=== PATIENT | female | born 1950 | race Caucasian/White ===

== ENCOUNTER → 2017-08-02 18:47 | Outpatient (CLI) | payer MEDICARE, BC, SELFPAY ==
[2017-08-02 18:56] LABS: Color, Urine Yellow (Yellow); Glucose, Dipstick Normal (Normal); Ketone-Dipstick Negative (Negative); Leukocyte Esterase-Dipstick 500 /ul (Negative); Nitrite-Dipstick Negative (Negative); Occult Blood-Urine 25 /ul (Negative); Protein-Dipstick 15 mg/dl (Negative); Specific Gravity, Urine 1.015 (1.002-1.030); Urine Bilirubin Dipstick Negative (Negative); Urine Clarity Sl. Cloudy (Clear); Urine Urobilinogen Normal (Normal)
[2017-08-03 08:38] LABS: Mucous, Urine 0 SEEN /hpf (<or=2+)
[2017-08-03 09:15] LABS: Bacteria 2+ /hpf (None Seen); Red Blood Cells-Urine 5-10 SEEN /hpf (0-5); Squamous Epithelial Cells - UA 25-50 SEEN /hpf (5-10); White Blood Cells 10-25 SEEN /hpf (0-5)
[2017-08-03 09:16] LABS: Triple Phosphate Crystals Ur 4+ /hpf (<or=1+)
== END ==
PROVIDERS: Family Provider Family Medicine; PCP Family Medicine; Visit Provider Nurse Practitioner Adult Health
DX: R82.99 Other abnormal findings in urine (principal)
CPT/HCPCS: 81002; 87077; 87086; 87088; 87186

== ENCOUNTER 2017-08-08 07:46 | Day surgery (SDC) | payer MEDICARE, BC, SELFPAY ==
[2017-08-05 09:58] VITALS: BP 121/73; PULSE 57; RESP 16; TEMP 36.7; O2SAT 98; BMI 31.2
--- NOTE | 2017-08-05 10:52 | EKG12_ITS ---
Test Reason : PRE-OP Blood Pressure : / mmHG Vent. Rate : 055 BPM Atrial Rate : 055 BPM P-R Int : 202 ms QRS Dur : 084 ms QT Int : 438 ms P-R-T Axes : 050 030 037 degrees QTc Int : 419 ms Sinus bradycardia Otherwise normal ECG Confirmed by NEIL OGLDBERG, WALI ([id number]), marketing editor DIANN LOPEZ ([id number] on 08/08/2017 2:29:41 PM Referred By: Sharan Fitzpatrick Confirmed By:WALI TREJO MD
[2017-08-05 11:24] LABS: Hematocrit 43.8 % (37-47); Hemoglobin 14.5 g/dl (12.0-15.0); Mean Corp Hgb Conc 33.1 g/gl (32-36); Mean Corpuscular Hgb 32.1 pg (27.0-32.0); Mean Corpuscular Volume 96.9 fL (81-99); Mean Platelet Vol. 11.5 fl (6.2-12.0); Platelet Count 265 K/mm3 (150-450); RBC Distribution Width CV 12.1 % (11.6-14.6); RBC Distribution Width SD 42.1 fl (35.1-43.9); Red Blood Count 4.52 M/mm3 (4.2-5.4); White Blood Count 4.9 K/mm3 (4.4-11.0)
[2017-08-05 11:26] LABS: Scan Indicated on CBC? Y/N NO
[2017-08-05 11:28] LABS: Prothrombin Time (Protime)PT. 13.6 SECONDS (11.7-14.9)
[2017-08-05 11:59] LABS: AST(SGOT) 21 U/L (15-37); Alanine Aminotransfer ALT/SGPT 29 U/L (13-56); Albumin, Serum 3.6 g/dL (3.2-5.0); Alkaline Phosphatase 72 U/L (45-117); Anion Gap 7 (5-15); BUN 19 mg/dL (7-18); BUN/Creat Ratio 25.4 RATIO (10-20); Chloride 106 mmol/L (98-107); Creatinine, Serum 0.75 mg/dL (0.55-1.02); EST Glomerular Filtration Rate 82 mL/min (>60); Est Glom Filt Rate - Afr Amer 99 mL/min (>60); Estimated Creatinine Clearance 49.12 ml/min; Globulin 3.6 g/dL (2.2-4.2); Glucose 89 mg/dL (74-106); Potassium 4.1 mmol/L (3.5-5.1); Protein, Total 7.2 g/dL (6.4-8.2); Sodium Level 143 mmol/L (136-145); Thyroid Stim Hormone (TSH) 0.31 uIU/mL (0.358-3.74)
--- NOTE | 2017-08-07 21:16 | HP.PCM_ITS ---
History and Physical Date of Admission: 08/08/17 Surgical History and Physical Pearl Ochoa, a 67 year old female 2 0 1 0 2, presents for Vaginal Hysterectomy and AP Repair and TVT per Dr. Singh on August 08, 2017 at 10:00. -- Prolapse and Bulging Symptoms; Stress Incontinence -- Pearl presents here today as referral from Dr. Singh for combined surgery for prolapsed bladder and cystocele. 67 y.o. G 3 P 2 post-menopausal non- smoker reporting that she started several weeks ago with pressure between her legs that was interrupting her urine release/flow. Up to date with exam, Mammogram etc. with PCP. Medication list up-dated. Cystocele found on exam for bladder surgery. Pearl claims it started gradually and has been present at least 6 months. It occurs all the time. It is located in the vagina. Pearl characterizes the quality pressure. Severity is moderate and not improving and very concerned; associated signs and symptoms are stress incontinence. MEDICATIONS HISTORY: Current medications prescribed by our practice are: 1. Estrace 0.01% (0.1 mg/gram) vaginal cream, one half gram per vagina twice weekly Patient is also takin. atenolol 50 mg tablet, one half tab daily 2. dicyclomine 10 mg capsule, As Directed prn 3. rosuvastatin 5 mg tablet, One pill by mouth every other day 4. Synthroid 175 mcg tablet, One pill by mouth once a day 5. valsartan 40 mg tablet, One pill by mouth every other day ALLERGIES: Tetanus Toxoid, Anaphylaxis, Compazine, Bruxism (grinding of the teeth and/or clenching of the jaw), Morphine and Hallucinations Infections - Chicken pox Illnesses - Polio, Hypothyroidism, IBS,Osteoarthritis Accidents - None Hospitalizations - see surgery Review of Systems: GENERAL - Denies fever, or chills SKIN - Denies skin changes EYES - Denies visual changes EARS - Denies difficulty hearing NOSE - Denies nasal congestion or bleeding MOUTH - Denies sore throat or difficulty swallowing NECK - Denies pain or swelling RESPIRATORY - Denies shortness of breath or wheezing CARDIOVASCULAR - Denies palpitations or chest pain GASTROINTESTINAL - Denies nausea, vomiting, diarrhea, constipation GENITOURINARY - incontinence (stress) MUSCULOSKELETAL - Denies joint or muscle pain NEUROLOGICAL - Denies localized numbness or weakness PSYCHIATRIC - Denies depression or anxiety ENDOCRINE - Denies heat or cold intolerance, weight loss or gain HEMATO-IMMUNOLOGIC - Denies excessive bleeding with cuts SOCIAL HISTORY: Alcohol Use - None Smoking - Never Diet - Whole Thirty Diet Lifestyle - moderate stress lifestyle and Exercise - active Seat Belt Use - always Employer - Retired Illicit Drug Use - None Sexual Activity - Spouse-Sig Other Name - Rajat Ochoa Spouse-Sig Other Occupation - Retired Control - postmenopausal FAMILY HISTORY: NC MENSTRUAL HISTORY: LMP Known?- Postmenopausal PAST PREGNANCIES: Total Pregnancies - 3; Full Term Pregnancies - 2; Premature - 0; Abortions, Induced - 0; Abortions, Spontaneous - 1; Ectopics - 0; Multiple Births - 0; Living Children - 2 SURGICAL HISTORY: 1. Appendectomy, 1979 2. D and C, 1987 3. 1993 (L) Breast Lumpectomy 4. cholecystectomy, 1997 5. 2005 (L) Leg surgery 6. 2009 Meniscus Repair 7. 2016 cataracts PHYSICAL EXAM BP- 118/78 Sitting, Right arm, regular cuff Weight- 186.84834 lbs Height- 65 inch BMI:31.02 CONSTITUTIONAL - NAD, well nourished, and well developed SKIN - No rash, lesions, or ulcers HEENT - Normocephalic, PERRLA, EOMI NECK - No nodes, no nuchal rigidity and thyroid normal size and texture LYMPH NODES - Palpation of lymph nodes in neck and groins within normal limits LUNGS - CTA x2 without wheezes, crackles or rales CARDIAC - Regular rate and rhythm without rubs, murmurs, or gallops ABDOMEN - Without hepatosplenomegaly, distention, masses, rebound, or guarding; normal bowel sounds; no hernias EXTREMITIES - No edema or calf tenderness NEUROLOGICAL - Cranial nerves II-XII grossly intact PSYCHIATRIC - A and O to time, place, person, mood and affect External Genital Vagina - non-tender without lesions Urethra/Urethral Meatus - non-tender Bladder - non-tender Vagina - loss of rugae, large cystocele and moderate rectocele Cervix - without cervical motion tenderness and has normal size and features without evident lesions and protrudes to within 3 cm of introitus with bearing down Uterus - 5-6 cm in size, mobile and nontender Adnexa - clear without masses or tenderness ASSESSMENT/PLAN: 1. Cystocele Midline, Uterovaginal Prolapse and Incomplete Discussed options for treatment and patient declines trying pessary. Desires to proceed with repair with TVT. Plan Vag Hyst and AP Repair (TVT per Dr. Singh). Discussed RBAs and all questions answered. Start intravaginal estradiol treatment.
[2017-08-08] VITALS (13 sets, daily range): BP systolic 99–128; BP diastolic 52–65; PULSE 53–89; RESP 16–18; TEMP 36.2–37.4; O2SAT 97–100; BMI 31.2
--- NOTE | 2017-08-08 09:17 | OP.PCM_ITS ---
Operative Report Date of Procedure: 08/08/17 Surgeons: Sharan Fitzpatrick MD, FACOG--for Vaginal Hysterectomy and AP Repair; Jos Singh MD-- for Cystoscopy and TVT Transportation Economics Teacher: AZUL Tran Anesthesia: Tristian Brown CRNA Type of anesthesia: General endotracheal Procedure: Vaginal hysterectomy and AP repair per myself; TVT and Cystoscopy per Dr. Jos Singh dictated separately Findings: 6 cm uterus with normal-appearing fallopian tubes. Large cystocele which protruded 2 cm outside the introitus. Cervix which protruded to within 1 cm of the introitus. Moderate rectocele after anterior repair portion of the procedure was completed. Indications: This is a 67-year-old who is been having problems with vaginal prolapse and pressure as well as stress urinary incontinence. Conservative measures have not been helpful. Given this the patient desires that we proceed the above procedure. She has been counseled regarding the risk and indications of this procedure including the possibility of bleeding, infection, and injury to surrounding structures such as bowel bladder. All questions were answered. Procedure: Patient was taken to the operating room where after induction of general anesthesia she was placed in the dorsal lithotomy position and prepped and draped in the usual sterile fashion. A Peterson catheter was placed. Anterior cervix was grasped with a tenaculum and anterior cervix circumscribed with cautery on a setting of 35 W coagulation. Anterior vaginal mucosa was undermined and anterior peritoneum was easily entered. The posterior aspect of the cervix was circumscribed with a knife and posterior peritoneum was easily entered. Progressive bites were taken on either side of the uterine cervix and each pedicle ligated with 0 Vicryl suture. Superior pedicles were ligated ?2 with 0 Vicryl suture and sidewall pedicles were examined and oversewn where necessary with [id number] 0 Vicryl suture to achieve hemostasis. Posterior vaginal cuff was oversewn with running locked 0 Vicryl suture. Hemostasis was noted and peritoneum was closed in a pursestring fashion incorporating superior pedicles into the stitch. Hemostasis was noted. Attention was turned toward the anterior repair portion of the procedure. Anterior vaginal mucosa was undermined and divided and then imbricating sutures were placed. Dr. Singh entered the operating room suite and performed his portion procedure which is dictated separately. Imbricating sutures were then tied in the midline with interrupted 0 Vicryl sutures. Vaginal mucosa was trimmed and then closed with interrupted 2-0 chromic suture. Vaginal cuff was then closed front to back with interrupted [id number] 0 Vicryl suture. Hemostasis was noted. Vaginal cuff was then closed front to back with interrupted [id number] 0 Vicryl suture. Attention was turned toward the posterior repair portion of the procedure. Remnants of the hymenal ring were grasped with Allises and a V-shaped incision was made in the perineum. Rectovaginal mucosa was then undermined divided and then imbricated toward the midline with interrupted 0 Vicryl suture. Vaginal mucosa was trimmed and then closed with running locked 2-0 chromic suture. Hemostasis was noted. Peterson catheter was again opened and clear yellow urine was noted. Vagina was packed with iodoform tape. Patient tolerated the procedure well was taken to recovery room in satisfactory condition; sponge instrument and needle counts were all reportedly correct. Estimated blood loss for the case was 200 cc. Cefotan 2 g IV was given prior to beginning the operative procedure. There were no apparent complications of the surgery. Comment: During transvaginal tape placement the left needle trocar went through and through the left side of the bladder. For this reason it is planned to leave the Peterson catheter in place for 1 week postoperatively. This is noted further in Dr. Singh's operative note dictated separately. Specimen to pathology was uterus and vaginal mucosa.
--- NOTE | 2017-08-08 09:20 | PCM.DC.VHY ---
Discharge Diet: No Restrictions Discharge Activity: Return to Normal Activity, May Not Drive - while taking narcotic pain medications., May Shower, May Take a Tub Bath May resume sexual activity in: 6-8 weeks Call your doctor if your incision/area has: Continuous Slow Oozing, Sudden Increased Bleeding, Increased Pain/ Swelling, Increased Redness, Foul Smelling Discharge Call your doctor if you observe: Fever of 101 or Higher, Inability to urinate, Inability to have a bowel movement, Using more than one pad per hour Allergies/Adverse Reactions: Allergies morphine Allergy (Verified 08/05/17 09:41) Other BAD HALLUCINATIONS prochlorperazine [From Compazine] Allergy (Verified 08/05/17 09:41) Other BAD SIDE EFFECTS. MOUTH SIDE WAYS Tetanus Vaccines and Toxoid Allergy (Verified 08/05/17 09:41) Anaphylaxis acetaminophen [From Vicodin] Adverse Reaction (Verified 08/05/17 10:21) Nausea/Vom/Diarrhea hydrocodone [From Vicodin] Adverse Reaction (Verified 08/05/17 10:21) Nausea/Vom/Diarrhea Medications to take at Discharge Amoxicillin [Amoxil] 500 mg PO BID 08/05/17 Aspirin E.C. [Ecotrin] 81 mg PO DAILY@0800 08/05/17 Atenolol [Tenormin (beta Yovana)] 25 mg PO DAILY 08/05/17 Dicyclomine HCl [Bentyl] 10 mg PO PRN PRN 08/05/17 Levothyroxine [Synthroid] 175 mcg PO DAILY 08/05/17 Rosuvastatin Calcium [Crestor] 5 mg PO QODAY 08/05/17 Valsartan [Diovan] 60 mg PO QHS 08/05/17 Docusate Sodium [Colace] 100 mg PO BID PRN PRN #60 cap 08/08/17 Oxycodone [Oxyir] 5 mg PO Q6H PRN PRN 7 Days #10 tab 08/08/17 The following prescriptions were given: Oxycodone [Oxyir] 5 mg PO Q6H PRN PRN 7 Days #10 tab PRN Reason: Severe Pain (6-02/08) Docusate Sodium [Colace] 100 mg PO BID PRN PRN #60 cap PRN Reason: Constipation Primary Care Physician: Shahzad Tinajero MD [Primary Care Provider] - Please Follow Up With: Weeman,Sharan, MD When: 2-3 weeks
--- NOTE | 2017-08-08 10:00 | HYST_PTH ---
PATIENT: SHO LOPEZ LOC: [facility] [place] U#:[id number] AGE/SX: 67/F ROOM: RE08/08/[address]: Dr. Sharan Fitzpatrick MD : 1950 BED: DIS: 08/09/2017 SPEC #: [id number] RECD: 08/08/17 14:21 STATUS: ZI GENARO #: [id number] PATRICIA: 08/08/17 10:[address]: Sharan Fitzpatrick DEPT: SURGICAL PATHOLOGY RECD BY: Stan Mathew ENTERED: 08/08/17 15:12 SP TYPE: HYSTERECT OTHR DR: Dr. Yury Tinajero MD Tissues: Uterus, NOS Procedures: Surgery Specimen Level II Surgery Specimen Level V HEADER OPERATION: Vaginal hysterectomy, anterior and posterior repair PRE-OP DIAGNOSIS: Cystocele midline; uterovaginal prolapse; stress incontinence TISSUE SUBMITTED: Cervix, uterus, vaginal mucosa MICROSCOPIC DIAGNOSIS Uterus, hysterectomy: Cervix ? nabothian cysts and mild chronic inflammation. Endometrium ? weakly proliferative endometrium with cystic change. Myometrium ? adenomyosis. Vaginal mucosa, anterior and posterior repair: Mild chronic inflammation. No evidence of dysplasia. AM:milagros 08/09/17 MICROSCOPIC DESCRIPTION Slides are reviewed. GROSS DESCRIPTION Received in fixative is one container labeled with the patient's name and designated cervix, uterus and vaginal mucosa. The specimen consists of a hysterectomy specimen consisting of uterus with cervix and detached pieces of mucosal tissue. The uterus with cervix weighs 44 gm and measures 7.5 x 4.5 x 3 cm. The serosal surface is galloway, glistening. The ectocervical mucosa is unremarkable. The external os is oval in contour. The endocervical canal measures 2.7 cm in length and the endocervical mucosa is galloway, glistening and unremarkable. The triangular endometrial cavity measures 4 cm in length and 1.5 cm in width. The endometrium is congested without any mass lesion and measures <0.1 cm in thickness. Sections of the uterine wall do not reveal any mass lesion and measures 1.5 cm in thickness. Also received are four variable size detached pieces of galloway mucosal tissue measuring in aggregate 7.5 x 4 x 1 cm. No mucosal lesion is identified. A few instrumentation gutierrez are noted. Cream Hauler sections are submitted in seven cassettes as follows: 1 - anterior cervix, 2 - posterior cervix, 3 & 4 - anterior uterine wall, 5 & 6 - posterior uterine wall, 7 ? mucosal tissue. / TOÑITO:milagros 08/08/17 TC:5 CPT: 73139, 75770
--- NOTE | 2017-08-08 12:04 | PCM.OPRPT ---
Report of Operation Date of Procedure: 08/08/17 Pre-Operative Diagnosis: Large cystocele and stress incontinence Post-Operative Diagnosis: Same Surgery/Procedure Performed:: Cystoscopy and tension-free vaginal sling Description of Surgical Findings:: 67-year-old female who had undergone a repair of a large cystocele by Dr. Fitzpatrick she also has stress incontinence because of this she was given to have a sling placed today, patient had already undergone procedure by Dr. Fitzpatrick stitches were in place for the cystocele repair. Bull catheter was in place. I then marked out the midline above the pubic bone went 2 cm to the left and 2 cm of the right main a small incision above the pubic bone on the right side and the left side past the first trocar on the left top down behind the pubic bone had some resistance in passing the trocar and eventually the trocar was passed through it took out the catheter looked inside the bladder and the trocar passed through the bladder from the top down so the trocar was then removed since it had passed to the bladder. I then used the Metzenbaum scissors and dissected more on the right side and created the space underneath the space of Retzius next to the pubic bone I went another centimeter to the right and then passed the trocar again top down and this and the trocar passed behind the pubic bone and into the space where the sling was given going. In the mid urethra. Looked inside the bladder again he could see that to sites where the trocar had passed the bladder at this time the trocar was in good position. I passed the sling up on that side. I then drained the bladder again with a Bull catheter went to the right side and passed the trocar top down behind the pubic bone into the space created for the sling on the right side below the urethra looked inside the bladder and there is no perforation or damage of the bladder on the right side. The sling was then tensioned pulled the sling up leaving the sheath and the plastic cover on the sling in place I then put a male heavy Fontanez scissors below the urethra cut the end of the slings off pulled the sheath out on the sling of the plate the sling and then I checked the sling is still slightly loose especially given her incontinence so tension a little bit tighter on both sides and then checked the sling again the sling appeared to be in good position below the urethra not tight but in good position below the urethra to help with incontinence. The excess length of the sling were then cut off the case was then handed over back to Dr. Fitzpatrick closed the vaginal incision and the nurses will put Dermabond glue and the suprapubic incisions. Since there is a perforation of the bladder on the left side when passing the trocar leave the catheter in for a week to let the bladder heal. Drains: bull. - Complications peforation of bladder with trocar. - Admit VTE Documentation VTE Present on Admission: No VTE Mechan Device Prophylaxis: SCD's VTE Pharm Prophylaxis ordered?: No Reason prophylaxis not ordered:: Treatment Not Indicated
[2017-08-08] MEDS: Ketorolac 15 MG/ML Vial IV ×2 (16:34→23:03)
[2017-08-08] MEDS: Dextrose 5%-Lactated Ringers 1,000 ML 125 ML IV ×2 (16:34→23:07)
[2017-08-08] MEDS: Enoxaparin 30 MG/0.3 ML Syringe SC (17:47)
[2017-08-08] MEDS: oxyCODONE 5 MG Tablet PO (19:47)
[2017-08-08] MEDS: Acetaminophen 500 MG Tablet 1000 MG PO (23:03)
[2017-08-08] MEDS: Atorvastatin Calcium 10 MG Tablet PO (23:05)
[2017-08-09 04:00] VITALS: BP 117/61; PULSE 52; RESP 16; TEMP 36.6; O2SAT 100
[2017-08-09 06:16] LABS: Hematocrit 35.1 % (37-47); Hemoglobin 11.7 g/dl (12.0-15.0); Mean Corp Hgb Conc 33.3 g/gl (32-36); Mean Corpuscular Hgb 32.4 pg (27.0-32.0); Mean Corpuscular Volume 97.2 fL (81-99); Mean Platelet Vol. 11.2 fl (6.2-12.0); Platelet Count 191 K/mm3 (150-450); RBC Distribution Width CV 11.9 % (11.6-14.6); Red Blood Count 3.61 M/mm3 (4.2-5.4); White Blood Count 10.1 K/mm3 (4.4-11.0)
[2017-08-09 06:19] LABS: Scan Indicated on CBC? Y/N NO
[2017-08-09] MEDS: Levothyroxine 175 MCG Tablet PO (06:20)
[2017-08-09] MEDS: Acetaminophen 500 MG Tablet 1000 MG PO (06:20)
[2017-08-09] MEDS: Dextrose 5%-Lactated Ringers 1,000 ML 125 ML IV (06:21)
[2017-08-09] MEDS: Ketorolac 15 MG/ML Vial IV (06:21)
[2017-08-09 06:36] LABS: Creatinine, Serum 0.74 mg/dL (0.55-1.02); EST Glomerular Filtration Rate 84 mL/min (>60); Est Glom Filt Rate - Afr Amer 101 mL/min (>60); Estimated Creatinine Clearance 49.12 ml/min
--- NOTE | 2017-08-09 07:41 | PCM.PN.BLA ---
Progress Note s/p sling home with jorgito santo will remove in office next week home with antibiotics, has amoxicillin to take at home.
[2017-08-09 07:56] VITALS: O2SAT 98
[2017-08-09 08:17] VITALS: BP 90/48; PULSE 58; RESP 18; TEMP 36.9; O2SAT 99
--- NOTE | 2017-08-09 08:43 | PCM.PN.OB ---
Subjective: Patient without complaints. Tolerating diet well. Minimal vaginal bleeding. Pain well controlled. Ready to go home. Discussed need for home-going Peterson catheter for 7 days. - Physical Exam Vital Signs AF, VSS Temp Pulse Resp BP Pulse Ox 98.5 F 58 L 18 90/48 L 99 08/09/17 08:17 08/09/17 08:17 08/09/17 08:17 08/09/17 08:17 08/09/17 08:17 Oxygen Flow Rate (L/min) 2 Oxygen Delivery Method Room Air Weight: 187 lb 13.341 oz Body Mass Index (BMI) 31.2 Intake and Output for Last 24 Hours 08/07/17 08/08/17 08/09/17 23:59 23:59 23:59 Intake Total 5376 / 5376 1199 / 1199 Output Total 825 / 825 1000 / 1000 Balance 4551 / 4551 199 / 199 Laboratory Tests Past 24 Hrs 08/09/17 08/09/17 05:58 05:58 WBC 10.1 RBC 3.61 L Hgb 11.7 L Hct 35.1 L MCV 97.2 MCH 32.4 H MCHC 33.3 RDW 11.9 RDW Differential 41.0 Plt Count 191 MPV 11.2 Creatinine 0.74 Estim Creat Clear Calc 49.12 Est GFR (MDRD) Af Amer 101 Est GFR (MDRD) Non-Af 84 Vaginal pack out and minimal bleeding noted. Hemoglobin and creatinine okay. Medical Necessity - Tobacco Use Smoking Status: Never smoker Assessment/Plan Doing well. Will release to home with routine instructions. Follow-up in 1 week for Peterson catheter removal. Patient will call if she needs additional amoxicillin to get her through this 1 week period.
[2017-08-09 09:30] VITALS: BP 90/48; PULSE 58; RESP 18; TEMP 36.6; O2SAT 99
== END 2017-08-09 09:31 | disposition home or self-care (01) ==
LOC: SDC 07:47 → AC 07:47 → MS2 09:46
PROVIDERS: Urology; Family Provider Family Medicine; PCP Family Medicine; Visit Provider Obstetrics & Gynecology
PROC: (CPT 58260; principal; 2017-08-08 09:40)
PROC: 0TJB8ZZ Inspection of Bladder, Via Natural or Artificial Opening Endoscopic (ICD-10-PCS; CPT 57288; 2017-08-08 09:40)
DX: N81.2 Incomplete uterovaginal prolapse (principal); N88.8 Other specified noninflammatory disorders of cervix uteri; N80.0 Endometriosis of uterus; N39.46 Mixed incontinence; R31.29 Other microscopic hematuria; R39.14 Feeling of incomplete bladder emptying; N99.71 Accidental puncture and laceration of a genitourinary system organ or structure during a genitourinary system procedure; I20.9 Angina pectoris, unspecified; I10 Essential (primary) hypertension; E03.9 Hypothyroidism, unspecified; M19.90 Unspecified osteoarthritis, unspecified site; E05.90 Thyrotoxicosis, unspecified without thyrotoxic crisis or storm; K58.9 Irritable bowel syndrome, unspecified; Z85.828 Personal history of other malignant neoplasm of skin; Z79.82 Long term (current) use of aspirin; Z79.899 Other long term (current) drug therapy; Z87.440 Personal history of urinary (tract) infections; Z86.718 Personal history of other venous thrombosis and embolism
CPT/HCPCS: 57260; 57288; 58550; 36415; 80053; 82565; 84443; 85027; 85610; 85730; 86850; 86900; 88302; 88307; 93005; J7120; C1771; J2405

== ENCOUNTER → 2017-08-23 18:47 | Outpatient (CLI) | payer MEDICARE, BC, SELFPAY | PROVIDERS: Family Provider Family Medicine; PCP Family Medicine; Visit Provider Urology | DX: R82.99 Other abnormal findings in urine (principal) | CPT/HCPCS: 87086; 87088 ==

== ENCOUNTER → 2018-03-13 08:29 | Outpatient (CLI) | payer MEDICARE, BC, SELFPAY ==
[2018-03-13 11:15] LABS: BUN 19 mg/dL (7-18); Creatinine, Serum 0.84 mg/dL (0.55-1.02); EST Glomerular Filtration Rate 71 mL/min (>60); Glucose 85 mg/dL (74-106)
[2018-03-13 11:16] LABS: Anion Gap 10 (5-15); BUN/Creat Ratio 22.5 RATIO (10-20); Calcium,Total 8.9 mg/dL (8.5-10.1); Chloride 106 mmol/L (98-107); Cholesterol 169 mg/dL (200); Est Glom Filt Rate - Afr Amer 86 mL/min (>60); High Density Lipoprotein 62 mg/dL; Potassium 4.1 mmol/L (3.5-5.1); Sodium Level 144 mmol/L (136-145); T4 Free Direct 1.04 ng/dL (0.76-1.46); Thyroid Stim Hormone (TSH) 0.84 uIU/mL (0.358-3.74); Triglycerides 108 mg/dL; Very Low Density Lipoprotein 22 mg/dL (5-40)
== END ==
PROVIDERS: Family Provider Family Medicine; PCP Family Medicine; Visit Provider Family Medicine
DX: I10 Essential (primary) hypertension (principal); E78.5 Hyperlipidemia, unspecified; E03.9 Hypothyroidism, unspecified
CPT/HCPCS: 36415; 80048; 80061; 84439; 84443

== ENCOUNTER → 2018-09-18 10:17 | Outpatient (CLI) | payer MEDICARE, BC, SELFPAY ==
[2017-08-08 13:52] VITALS: BMI 31.2
[2018-09-18 12:32] LABS: Hematocrit 43.5 % (37-47); Hemoglobin 14.2 g/dl (12.0-15.0); Mean Corp Hgb Conc 32.6 g/gl (32-36); Mean Corpuscular Hgb 31.6 pg (27.0-32.0); Mean Corpuscular Volume 96.9 fL (81-99); Platelet Count 270 K/mm3 (150-450); RBC Distribution Width CV 12.4 % (11.6-14.6); RBC Distribution Width SD 43.6 fl (35.1-43.9); Red Blood Count 4.49 M/mm3 (4.2-5.4); White Blood Count 5.1 K/mm3 (4.4-11.0)
[2018-09-18 12:35] LABS: Scan Indicated on CBC? Y/N NO
[2018-09-18 13:16] LABS: Erythrocyte Sedimentation Rate 11 mm/hr (0-30)
[2018-09-18 13:23] LABS: ALB/GLOB Ratio 1.1 RATIO (0.9-2.4); AST(SGOT) 16 U/L (15-37); Alanine Aminotransfer ALT/SGPT 25 U/L (13-56); Albumin, Serum 3.6 g/dL (3.2-5.0); Alkaline Phosphatase 71 U/L (45-117); Anion Gap 7 (5-15); BUN 17 mg/dL (7-18); BUN/Creat Ratio 21.6 RATIO (10-20); Calcium,Total 8.8 mg/dL (8.5-10.1); Chloride 110 mmol/L (98-107); Cholesterol 154 mg/dL (200); Creatinine, Serum 0.79 mg/dL (0.55-1.02); EST Glomerular Filtration Rate 77 mL/min (>60); Est Glom Filt Rate - Afr Amer 93 mL/min (>60); Globulin 3.4 g/dL (2.2-4.2); Glucose 88 mg/dL (74-106); High Density Lipoprotein 55 mg/dL; Potassium 4.2 mmol/L (3.5-5.1); Sodium Level 144 mmol/L (136-145); T4 Free Direct 1.59 ng/dL (0.76-1.46); Thyroid Stim Hormone (TSH) 0.28 uIU/mL (0.358-3.74); Triglycerides 77 mg/dL; Very Low Density Lipoprotein 15 mg/dL (5-40)
[2018-09-18 13:59] LABS: Vitamin B12 541 pg/mL (211-911); Vitamin D,25 Hydroxy 37.2 ng/mL (29.95-100.01)
== END ==
PROVIDERS: Family Provider Family Medicine; PCP Family Medicine; Visit Provider Family Medicine
DX: E78.5 Hyperlipidemia, unspecified (principal); E03.9 Hypothyroidism, unspecified; R53.83 Other fatigue
CPT/HCPCS: 36415; 80053; 80061; 82306; 82607; 84439; 84443; 85027; 85652

== ENCOUNTER → 2018-11-21 09:26 | Outpatient (CLI) | payer MEDICARE, BC, SELFPAY ==
[2017-08-08 13:52] VITALS: BMI 31.2
[2018-11-21 13:00] LABS: T4 Free Direct 1.16 ng/dL (0.76-1.46); Thyroid Stim Hormone (TSH) 6.19 uIU/mL (0.358-3.74)
== END ==
PROVIDERS: Family Provider Family Medicine; PCP Family Medicine; Referring Provider Family Medicine; Visit Provider Family Medicine
DX: E03.9 Hypothyroidism, unspecified (principal)
CPT/HCPCS: 36415; 84439; 84443

== ENCOUNTER → 2019-06-12 11:20 | Outpatient (CLI) | payer MEDICARE, BC, SELFPAY ==
[2017-08-08 13:52] VITALS: BMI 31.2
[2019-06-12 13:54] LABS: ALB/GLOB Ratio 1.2 RATIO (0.9-2.4); AST(SGOT) 18 U/L (15-37); Alanine Aminotransfer ALT/SGPT 30 U/L (13-56); Albumin, Serum 3.8 g/dL (3.2-5.0); Alkaline Phosphatase 64 U/L (45-117); BUN 12 mg/dL (7-18); BUN/Creat Ratio 16.1 RATIO (10-20); Calcium,Total 9.3 mg/dL (8.5-10.1); Cholesterol 133 mg/dL (200); Creatinine, Serum 0.74 mg/dL (0.55-1.02); EST Glomerular Filtration Rate 82 mL/min (>60); Est Glom Filt Rate - Afr Amer 99 mL/min (>60); Globulin 3.3 g/dL (2.2-4.2); Glucose 88 mg/dL (74-106); Protein, Total 7.1 g/dL (6.4-8.2); Triglycerides 73 mg/dL
[2019-06-12 13:55] LABS: Anion Gap 6 (5-15); Chloride 108 mmol/L (98-107); High Density Lipoprotein 51 mg/dL; Potassium 3.9 mmol/L (3.5-5.1); Sodium Level 141 mmol/L (136-145); T4 Free Direct 1.64 ng/dL (0.76-1.46); Thyroid Stim Hormone (TSH) 0.69 uIU/mL (0.358-3.74); Very Low Density Lipoprotein 15 mg/dL (5-40)
== END ==
PROVIDERS: PCP Family Medicine; Visit Provider Family Medicine
DX: I10 Essential (primary) hypertension (principal); E03.9 Hypothyroidism, unspecified
CPT/HCPCS: 36415; 80053; 80061; 84439; 84443

== ENCOUNTER 2019-10-14 11:30 | Emergency (ER) | payer MEDICARE, BC, SELFPAY ==
[2019-10-14 11:31] VITALS: BP 157/93; PULSE 60; PULSE 714; RESP 12; RESP 17; TEMP 36.3; O2SAT 98; O2SAT 99; BMI 28.2
--- NOTE | 2019-10-14 11:47 | RAD_ITS ---
STUDY: X-RAY CHEST REASON FOR EXAM: Female, 69 years old. Chest pain on exertion. Morning chest pain upon awakening. Some shortness of breath. TECHNIQUE: AP portable upright chest COMPARISON: None. FINDINGS: Multiple old healed left-sided posterior lateral rib fractures. Clear lungs, somewhat hyperlucent suggesting the possibility of COPD. Correlate smoking history. Normal cardiomediastinal silhouette. RAD/Chest 1 View (Portable) IMPRESSION: No acute cardiopulmonary process. Electronically Signed: Nathaniel Iglesias MD at 13:11 EDT Tel , Service support ,
--- NOTE | 2019-10-14 11:47 | EKG12_ITS ---
Test Reason : CP Blood Pressure : / mmHG Vent. Rate : 062 BPM Atrial Rate : 062 BPM P-R Int : 188 ms QRS Dur : 078 ms QT Int : 442 ms P-R-T Axes : 046 027 049 degrees QTc Int : 448 ms Normal sinus rhythm Normal ECG Confirmed by JOHANA GOLDBERG, RITO ([id number]), photographic editor DIANN LOPEZ ([id number]) on 10/16/2019 11:13:56 AM Referred By: Confirmed By:RITO VAUGHN MD
--- NOTE | 2019-10-14 11:47 | ED.VIS.GEN ---
History of Present Illness Chief Complaint: Chest Pain Informant: Patient Onset: Weeks Current Severity: Mild Maximum Severity: Mild Narrative: Patient complains of about a 2-week sense of pain under her right breast that initially occurred when she walked it is sharp intense, is not associated with diaphoresis nausea or vomiting, she has no history of SD PE or DVT she has history of hypertension and nonspecific tremor, she is lost weight recently due to lifestyle changes, bowel bladder habits unremarkable no fever no cough no coronavirus exposure, the pain seems to just come and go it really occurred today and she came in for evaluation, She points to an area just under the right breast fold, this area is not swollen there is been no trauma there is no redness no masses she has no breast pain Past Medical History - Allergies and Home Meds Allergies/Adverse Reactions: Allergies morphine Allergy (Verified 10/14/19 11:31) Other BAD HALLUCINATIONS prochlorperazine [From Compazine] Allergy (Verified 10/14/19 11:31) Other BAD SIDE EFFECTS. MOUTH SIDE WAYS Tetanus Vaccines and Toxoid Allergy (Verified 10/14/19 11:31) Anaphylaxis hydrocodone [From Vicodin] Adverse Reaction (Verified 10/14/19 11:31) Nausea/Vom/Diarrhea Primary Care Physician: Shahzad Tinajero MD [Primary Care Provider] - Past Medical History: - - Includes as above Smoking Status: Never smoker Review of Systems General: Denies: Chills, Fever, Sweats Eyes: Denies: Visual changes - bilaterally, Diplopia ENT: Denies: Rhinorrhea, Sore throat Cardiovascular: Reports: Chest pain. Denies: Palpitations Respiratory: Denies: Dyspnea, Cough, Dyspnea on exertion Gastrointestinal: Denies: Abdominal pain, Nausea, Vomiting, Diarrhea, Melena, Hematochezia Genitourinary: Denies: Dysuria, Hematuria, Frequency Musculoskeletal: Denies: Back pain, Extremity Pain Skin: Denies: Rash, Wounds Neurological: Denies: Headache, Weakness, Numbness Physical Exam Vital Signs/Narrative: Vital Signs Temp Pulse Resp BP Pulse Ox 10/14/19 11:31 97.4 F L 60 17 157/93 H 99 General: Well nourished, Well developed, No Acute Distress Head: Normocephalic, Atraumatic Eyes: Perrl, EOMI ENT: Moist mucous membranes, No rhinorrhea Neck: Supple, Nontender Cardiovascular: Regular rate, Regular rhythm, No murmurs Respiratory: No distress, CTA bilaterally, Chest nontender Abdomen: Soft, Nontender, Nondistended, Normal bowel sounds Back: Nontender, Normal Inspection Extremities: Nontender, No edema Skin: Normal color, No rash Neurological: Alert, Oriented x3, Cranial nerves II-XII grossly intact, Normal Strength, Normal Sensation Psychological: Normal affect, Normal Mood Diagnostic/Tx/Re-eval - Medical Decision Making The patient's physical exam is unremarkable palpation of this area of her chest does not reproduce the pain that she is not having it now, there is no bony tenderness no mass no fullness no infection the breast is unremarkable, The patient's EKG shows a sinus rhythm rate 62 no acute injury pattern given her complaints the duration of the pain etc. screening labs ED evaluation ED screening evaluation including labs troponin d-dimer chest x-ray are all negative reevaluation she is remained asymptomatic and resting comfortably in the bed we discussed the long differential, including potential life-threatening etiologies to the above, we discussed inpatient versus outpatient management, she does not wish to be admitted she is been having symptoms for some time intermittently she is comfortable with outpatient managed with her physicians and will return for change in symptoms Home stable declined admission Final impression intermittent pain under right breast for 2 weeks etiology unclear ED Disposition - Plan for ED Patient: Diagnosis: Right-sided chest pain Instructions: ED Chest Pain Atypical Unkn Cause Referrals: Shahzad Tinajero MD [Primary Care Provider] -
[2019-10-14 11:50] VITALS: O2SAT 98
[2019-10-14 11:52] LABS: Absolute Lymphocyte Count 1.61 X10^3/uL (0.83-4.51); Absolute Neutrophil Count 4.5 X10^3/uL (2.0-7.7); Basophil# 0.07 X10^3/uL; Basophil% 1.1 % (0-1); Eosinophil# 0.05 X10^3/uL; Eosinophils% 0.8 % (0-5); Hematocrit 47.5 % (37-47); Hemoglobin 15.3 g/dL (12.0-15.0); Lymphocyte # 1.61 X10^3/ul (4.0); Lymphocyte % 24.3 % (19-41); Mean Corp Hgb Conc 32.2 g/dL (32-36); Mean Corpuscular Hgb 32.3 pg (27.0-32.0); Mean Corpuscular Volume 100.2 fL (81-99); Monocyte# 0.34 X10^3/uL; Monocyte% 5.1 % (0-10); NRBC Flagged by Analyzer 0 % (0-5); Neutrophil # 4.53 X10^3/uL (2.7-7.7); Neutrophil % 68.2 % (47-70); Platelet Count 297 K/mm3 (150-450); RBC Distribution Width CV 12.6 % (11.6-14.6); RBC Distribution Width SD 47.2 fl (35.1-43.9); Red Blood Count 4.74 M/mm3 (4.2-5.4); White Blood Count 6.6 K/mm3 (4.4-11.0)
[2019-10-14] MEDS: Aspirin 81 MG TAB.CHEW 324 MG PO (11:59)
[2019-10-14] MEDS: 0.9% Normal Saline 1,000 ML 150 ML IV (12:00)
[2019-10-14 12:06] LABS: Anion Gap 5 (5-15); BUN 16 mg/dL (7-18); BUN/Creat Ratio 20.7 RATIO (10-20); Calcium,Total 9.4 mg/dL (8.5-10.1); Chloride 107 mmol/L (98-107); Creatinine, Serum 0.77 mg/dL (0.55-1.02); EST Glomerular Filtration Rate 78 mL/min (>60); Est Glom Filt Rate - Afr Amer 95 mL/min (>60); Estimated Creatinine Clearance 47.78 ml/min; Glucose 105 mg/dL (74-106); Potassium 3.9 mmol/L (3.5-5.1); Sodium Level 143 mmol/L (136-145)
[2019-10-14 12:11] LABS: BNP,B-Type NATRIURETIC PEPTIDE 16.8 pg/mL (0-100)
[2019-10-14 13:53] VITALS: BP 157/76; PULSE 66; RESP 17; RESP 18; O2SAT 98
== END 2019-10-14 13:54 | disposition home or self-care (01) ==
PROVIDERS: Emergency Provider Emergency Medicine; PCP Family Medicine
DX: R07.89 Other chest pain (principal); Z79.82 Long term (current) use of aspirin; Z79.899 Other long term (current) drug therapy
CPT/HCPCS: 71045; 80048; 83880; 84484; 85025; 85379; 93005; 96360; 96361; 99285; J7030; A4216

== ENCOUNTER → 2019-11-21 09:40 | Outpatient (CLI) | payer MEDICARE, BC, SELFPAY ==
[2019-11-21 13:18] LABS: ALB/GLOB Ratio 1.2 RATIO (0.9-2.4); AST(SGOT) 22 U/L (15-37); Alanine Aminotransfer ALT/SGPT 33 U/L (13-56); Albumin, Serum 3.9 g/dL (3.2-5.0); Alkaline Phosphatase 68 U/L (45-117); Anion Gap 3 (5-15); BUN 14 mg/dL (7-18); BUN/Creat Ratio 17.9 RATIO (10-20); Calcium,Total 8.9 mg/dL (8.5-10.1); Chloride 107 mmol/L (98-107); Cholesterol 148 mg/dL (200); Creatinine, Serum 0.78 mg/dL (0.55-1.02); EST Glomerular Filtration Rate 78 mL/min (>60); Est Glom Filt Rate - Afr Amer 94 mL/min (>60); Globulin 3.3 g/dL (2.2-4.2); Glucose 92 mg/dL (74-106); High Density Lipoprotein 58 mg/dL; Potassium 3.8 mmol/L (3.5-5.1); Protein, Total 7.2 g/dL (6.4-8.2); Sodium Level 140 mmol/L (136-145); Thyroid Stim Hormone (TSH) 3.36 uIU/mL (0.358-3.74); Triglycerides 78 mg/dL; Very Low Density Lipoprotein 16 mg/dL (5-40)
== END ==
PROVIDERS: PCP Family Medicine; Referring Provider Family Medicine; Visit Provider Family Medicine
DX: E78.5 Hyperlipidemia, unspecified (principal); E03.9 Hypothyroidism, unspecified
CPT/HCPCS: 36415; 80053; 80061; 84443

== ENCOUNTER → 2021-01-08 08:15 | Outpatient (CLI) | payer MEDICARE, BC, SELFPAY ==
[2021-01-08 10:26] LABS: AST(SGOT) 16 U/L (15-37); Alanine Aminotransfer ALT/SGPT 32 U/L (13-56); Albumin, Serum 3.5 g/dL (3.2-5.0); Alkaline Phosphatase 58 U/L (45-117); Anion Gap 4 (5-15); BUN 17 mg/dL (7-18); BUN/Creat Ratio 26.3 RATIO (10-20); Calcium,Total 8.9 mg/dL (8.5-10.1); Chloride 108 mmol/L (98-107); Cholesterol 142 mg/dL (200); Creatinine, Serum 0.65 mg/dL (0.55-1.02); EST Glomerular Filtration Rate 96 mL/min (>60); Est Glom Filt Rate - Afr Amer 116 mL/min (>60); Globulin 3.6 g/dL (2.2-4.2); Glucose 87 mg/dL (74-106); High Density Lipoprotein 59 mg/dL; Potassium 3.7 mmol/L (3.5-5.1); Protein, Total 7.1 g/dL (6.4-8.2); Sodium Level 142 mmol/L (136-145); T4 Free Direct 1.26 ng/dL (0.76-1.46); Thyroid Stim Hormone (TSH) 3.78 uIU/mL (0.358-3.74); Triglycerides 71 mg/dL; Very Low Density Lipoprotein 14 mg/dL (5-40)
== END ==
PROVIDERS: PCP Family Medicine; Referring Provider Family Medicine; Visit Provider Family Medicine
DX: E78.5 Hyperlipidemia, unspecified (principal); E03.9 Hypothyroidism, unspecified
CPT/HCPCS: 36415; 80053; 80061; 84439; 84443

== ENCOUNTER 2021-07-09 08:23 | Outpatient (CLI) | payer MEDICARE, BC, SELFPAY ==
[2021-07-09 10:29] LABS: Anion Gap 1 (5-15); BUN 28 mg/dL (7-18); BUN/Creat Ratio 34.3 RATIO (10-20); Calcium,Total 9.6 mg/dL (8.5-10.1); Chloride 107 mmol/L (98-107); Creatinine, Serum 0.82 mg/dL (0.55-1.02); EST Glomerular Filtration Rate 73 mL/min (>60); Est Glom Filt Rate - Afr Amer 89 mL/min (>60); Glucose 96 mg/dL (74-106); Potassium 3.7 mmol/L (3.5-5.1); Sodium Level 140 mmol/L (136-145); T4 Free Direct 1.17 ng/dL (0.76-1.46); Thyroid Stim Hormone (TSH) 7.11 uIU/mL (0.358-3.74)
== END 2021-07-09 23:59 | disposition home or self-care (01) ==
PROVIDERS: PCP Family Medicine; Referring Provider Family Medicine; Visit Provider Family Medicine
DX: I10 Essential (primary) hypertension (principal); E03.9 Hypothyroidism, unspecified
CPT/HCPCS: 36415; 80048; 84439; 84443

== ENCOUNTER → 2022-01-21 | Outpatient (CLI) | payer MEDICARE, BC, SELFPAY ==
[2022-01-21 11:30] LABS: Anion Gap 4 (5-15); BUN 18 mg/dL (7-18); BUN/Creat Ratio 24.6 RATIO (10-20); Calcium,Total 9.5 mg/dL (8.5-10.1); Chloride 106 mmol/L (98-107); Cholesterol 146 mg/dL (200); Creatinine, Serum 0.73 mg/dL (0.55-1.02); EST Glomerular Filtration Rate 83 mL/min (>60); Est Glom Filt Rate - Afr Amer 101 mL/min (>60); Free T3 2.2 pg/mL (2.18-3.98); Glucose 92 mg/dL (74-106); High Density Lipoprotein 61 mg/dL; Sodium Level 142 mmol/L (136-145); Triglycerides 72 mg/dL; Very Low Density Lipoprotein 14 mg/dL (5-40)
== END | disposition home or self-care (01) ==
LOC: MFPLAB 09:24
PROVIDERS: PCP Family Medicine; Referring Provider Family Medicine; Visit Provider Family Medicine
DX: I10 Essential (primary) hypertension (principal); E03.9 Hypothyroidism, unspecified; Z13.21 Encounter for screening for nutritional disorder
CPT/HCPCS: 36415; 80048; 80061; 82306; 84443; 84481

== ENCOUNTER → 2022-04-15 | Outpatient (CLI) | payer MEDICARE, BC, SELFPAY ==
--- NOTE | 2022-04-15 08:09 | BD_ITS ---
STUDY: DUAL ENERGY X-RAY ABSORPTIOMETRY / DXA REASON FOR EXAM: Female, 72 years old. [id number] TECHNIQUE: Bone Mineral Density (BMD) measurements of lumbar spine and bilateral hips were obtained. COMPARISON: None. FINDINGS: Lumbar Spine (L1-L4): g/cm2 (0.779) / T-score (-2.2) / Z-score (0.0) Findings are suggestive of osteopenia with a high fracture risk. Left Femur Total: g/cm2 (0.612) / T-score (-2.7) / Z-score (-1.1) Left Femoral Neck: g/cm2 (0.569) / T-score (-2.5) / Z-score (-0.6) Right Femur Total: g/cm2 (0.649) / T-score (-2.4) / Z-score (-0.8) Right Femoral Neck: g/cm2 (0.599) / T-score (-2.2) / Z-score (-0.3) BD/Dexa Bone Density Study IMPRESSION: The patient is considered osteoporotic as outlined below according to World Ran Organization (WHO) criteria with a high fracture risk. Reference Information: The T-score is the number of standard deviations above or below the standard which is normal for young adults at their peak bone mineral density. The World Health Organization (WHO) interprets the T-scores as follows: Above -1 Normal bone density Between -1 and -2.5 Osteopenia Equal to / or below -2.5 Osteoporosis As a practical clinical guideline, osteopenia may be graded as follows: Mild -1 through -1.5 Moderate -1.6 through -2.0 Severe -2.1 through -2.4 The Z-score is the number of standard deviations above or below age-matched controls. A Z-score of less than -1.5 would be considered abnormal. References: 1. NIH Osteoporosis and Related Bone Diseases www osteo.org 2. International Society for Clinical Densitometry www iscd.org 3. National Osteoporosis Foundation www nof.org Electronically Signed: Rashaad Coyle MD at 14:59 EST ,
== END | disposition home or self-care (01) ==
LOC: OPBD 07:58
PROVIDERS: PCP Family Medicine; Visit Provider Family Medicine
DX: Z00.00 Encounter for general adult medical examination without abnormal findings (principal); M81.0 Age-related osteoporosis without current pathological fracture; Z78.0 Asymptomatic menopausal state
CPT/HCPCS: 77080

== ENCOUNTER → 2022-05-19 | Outpatient (CLI) | payer MEDICARE, BC, SELFPAY ==
[2022-05-19 16:10] LABS: Magnesium 2.2 mg/dL (1.6-2.6)
[2022-05-20 00:50] LABS: PTHIN 64.5 pg/mL (18.4-80.1)
== END | disposition home or self-care (01) ==
LOC: MFPLAB 12:01
PROVIDERS: PCP Family Medicine; Referring Provider Family Medicine; Visit Provider Family Medicine
DX: M81.0 Age-related osteoporosis without current pathological fracture (principal)
CPT/HCPCS: 36415; 82330; 83735; 83970; 84100

== ENCOUNTER → 2022-07-20 | Outpatient (CLI) | payer MEDICARE, BC, SELFPAY ==
[2022-07-20 13:02] LABS: Anion Gap 3 (5-15); BUN 23 mg/dL (7-18); BUN/Creat Ratio 33.1 RATIO (10-20); Calcium,Total 9.5 mg/dL (8.5-10.1); Chloride 110 mmol/L (98-107); Cholesterol 132 mg/dL (200); EST Glomerular Filtration Rate 88 mL/min (>60); Est Glom Filt Rate - Afr Amer 107 mL/min (>60); Glucose 94 mg/dL (74-106); High Density Lipoprotein 62 mg/dL; Potassium 4.6 mmol/L (3.5-5.1); Sodium Level 142 mmol/L (136-145); Triglycerides 46 mg/dL; Very Low Density Lipoprotein 9 mg/dL (5-40)
== END | disposition home or self-care (01) ==
LOC: MFPLAB 09:38
PROVIDERS: PCP Family Medicine; Referring Provider Family Medicine; Visit Provider Family Medicine
DX: I10 Essential (primary) hypertension (principal); E03.9 Hypothyroidism, unspecified
CPT/HCPCS: 36415; 80048; 80061; 84443

== ENCOUNTER → 2023-01-24 | Outpatient (CLI) | payer MEDICARE, BC, SELFPAY ==
[2023-01-24 11:35] LABS: T4 Free Direct 1.39 ng/dL (0.76-1.46); Thyroid Stim Hormone (TSH) 0.26 uIU/mL (0.358-3.74)
== END | disposition home or self-care (01) ==
LOC: MFPLAB 09:17
PROVIDERS: PCP Family Medicine; Visit Provider Family Medicine
DX: E03.9 Hypothyroidism, unspecified (principal)
CPT/HCPCS: 36415; 84439; 84443

== ENCOUNTER → 2023-07-25 | Outpatient (CLI) | payer MEDICARE, BC, SELFPAY ==
[2023-07-25 11:26] LABS: Anion Gap 5 (5-15); BUN 16 mg/dL (7-18); BUN/Creat Ratio 20.4 RATIO (10-20); Chloride 109 mmol/L (98-107); Creatinine, Serum 0.78 mg/dL (0.55-1.02); EST Glomerular Filtration Rate 76 mL/min (>60); Est Glom Filt Rate - Afr Amer 92 mL/min (>60); Glucose 95 mg/dL (74-106); Potassium 3.9 mmol/L (3.5-5.1); Sodium Level 142 mmol/L (136-145); T4 Free Direct 1.27 ng/dL (0.76-1.46); Thyroid Stim Hormone (TSH) 2.75 uIU/mL (0.358-3.74)
== END | disposition home or self-care (01) ==
LOC: MFPLAB 08:29
PROVIDERS: PCP Family Medicine; Visit Provider Family Medicine
DX: I10 Essential (primary) hypertension (principal); E03.9 Hypothyroidism, unspecified
CPT/HCPCS: 36415; 80048; 84439; 84443

== ENCOUNTER → 2024-01-30 | Outpatient (CLI) | payer MEDICARE, SELFPAY | END | disposition home or self-care (01) | PROVIDERS: PCP Family Medicine; Visit Provider Family Medicine | DX: Z00.00 Encounter for general adult medical examination without abnormal findings (principal); E03.9 Hypothyroidism, unspecified | CPT/HCPCS: 36415; 84439; 84443 ==

== ENCOUNTER → 2024-05-23 | Outpatient (CLI) | payer MEDICARE, SELFPAY ==
[2024-05-23 15:58] LABS: CRP < 2.90 mg/L (0.0-3.0)
[2024-05-28 12:07] LABS: Endomysial Antibody IgA Negative (Negative); Immunoglobulin A 58 mg/dL (64-422); t-Transglutaminase IgA <2 U/mL (0-3)
== END | disposition home or self-care (01) ==
LOC: MTLAB 11:12
PROVIDERS: PCP Family Medicine; Referring Provider Internal Medicine Gastroenterology; Visit Provider Internal Medicine Gastroenterology
DX: R19.7 Diarrhea, unspecified (principal)
CPT/HCPCS: 36415; 82784; 83516; 86140; 86255

== ENCOUNTER → 2024-06-05 | Outpatient (CLI) | payer MEDICARE, SELFPAY ==
--- NOTE | 2024-06-05 10:39 | BD_ITS ---
PROCEDURE: DEXA BONE DENSITY STUDY REASON FOR EXAM: F, age 74 y/o . Patient is postmenopausal.. TECHNIQUE: DEXA scan of the lumbar spine and both hips. COMPARISON: Comparison is made with prior study dated April 15, 2022. FINDINGS: Lumbar Spine (L1-L4): g/cm2 (0.779)/T-score (-2.2)/Z-score (0.1) findings are suggestive of osteopenia with a high fracture risk. Left Femur Total: g/cm2 (0.626)/T-score (-2.6)/Z-score (-0.9) Left Femoral Neck: g/cm2 (0.582)/T-score (-2.4)/Z-score (-0.4) Right Femur Total: g/cm2 (0.640)/T-score (-2.5)/Z-score (-0.7) Right Femoral Neck: g/cm2 (0.557)/T-score (-2.6)/Z-score (-0.6) The T-Scores on the most recent prior examination were: Lumbar Spine (L1-L4): There has been no change of bone density since the previous examination. Left Femur Total: Improvement of 2.2%. Right Femur Total: Worsening of 1.4%. BD/Dexa Bone Density Study IMPRESSION: OSTEOPOROSIS. High fracture risk. Reading Location: [place] [id number]
== END | disposition home or self-care (01) ==
PROVIDERS: PCP Family Medicine; Referring Provider Family Medicine; Visit Provider Family Medicine
DX: M81.0 Age-related osteoporosis without current pathological fracture (principal); Z78.0 Asymptomatic menopausal state
CPT/HCPCS: 77080

== ENCOUNTER → 2025-02-06 | Outpatient (CLI) | payer MEDICARE, SELFPAY ==
[2025-02-06 13:17] LABS: PTHIN 60 pg/mL (11-61)
[2025-02-06 14:12] LABS: Albumin, Serum 4.1 g/dL (3.4-4.8); Chloride 106 mmol/L (98-108); Potassium 3.8 mmol/L (3.3-5.1)
[2025-02-06 15:57] LABS: AST(SGOT) 22 U/L (<=31); Alanine Aminotransfer ALT/SGPT 18 U/L (<=34); Alkaline Phosphatase 58 U/L (35-104); Anion Gap 14 (5-15); BUN 18 mg/dL (4-19); BUN/Creat Ratio 23.6 RATIO (10-20); Calcium,Total 9.0 mg/dL (7.6-11.0); Carbon Dioxide 21.6 mmol/L (21.0-32.0); Cholesterol 136 mg/dL (<=200); Globulin 2.7 g/dL (2.2-4.2); Glucose 101 mg/dL (70-99); Low Density Lipoprotein Calc. 63 mg/dL; Triglycerides 83 mg/dL; Very Low Density Lipoprotein 17 mg/dL (5-40); Vitamin D,25 Hydroxy 56.3 ng/mL (30-100); cholesterol:hdl ratio screen 2.43
== END | disposition home or self-care (01) ==
LOC: MFPLAB 10:30
PROVIDERS: PCP Family Medicine; Visit Provider Family Medicine
DX: E03.9 Hypothyroidism, unspecified (principal); I10 Essential (primary) hypertension; K58.9 Irritable bowel syndrome, unspecified; M81.0 Age-related osteoporosis without current pathological fracture
CPT/HCPCS: 36415; 80053; 80061; 82306; 83970; 84439; 84443